=== PATIENT | male | born 1990 | race Two or more races ===

== ENCOUNTER 2018-12-04 22:15 | Day surgery (SDC) | payer SELFPAY ==
[2018-12-05] MEDS ORDERED: Ondansetron 4 MG/2 ML SDV IVPUSH ONE (00:32)
[2018-12-05] MEDS ORDERED: HYDROmorphone 1 MG/ML Syringe IVPUSH STA (00:32)
--- NOTE | 2018-12-05 00:34 | EDM.PDOC ---
ED HPI GENERAL MEDICAL PROBLEM - General Chief Complaint: Abdominal Pain Stated Complaint: LOWER ABD PAIN Time Seen by Provider: 12/05/18 00:19 Source of Information: Reports: Patient, RN Notes Reviewed, Other (Friend/ coworker) History Limitations: Reports: No Limitations - History of Present Illness INITIAL COMMENTS - FREE TEXT/NARRATIVE: The patient states that he developed right lower quadrant abdominal pain this past 12/01/2018. He describes the character as twisting and crampy. The pain originated in his periumbilical region, but migrated to the right lower quadrant yesterday. It is constant, although getting worse. It does not radiate. He has not identified any modifiers. No associated fever, nausea, vomiting, constipation, or diarrhea. No prior similar symptoms. The patient states that he has been taking omeprazole, without relief. The patient's last oral solid food was around 12 noon yesterday, , 2018. The patient does not have a PCP. Right Lower Abdomen Pain Score (Numeric/FACES): 9 - Related Data Allergies Allergy/AdvReac Type Severity Reaction Status Date / Time No Known Allergies Allergy Verified 12/04/18 22:36 Home Meds: Home Meds . [No Known Home Meds] 12/04/18 [History] Past Medical History - Past Health History Medical/Surgical History: Denies Medical/Surgical History Social & Family History - Tobacco Use Smoking Status *Q: Current Every Day Smoker Years of Tobacco use: 4 Packs/Tins Daily: 0.3 - Caffeine Use Caffeine Use: Reports: Energy Drinks, Soda - Alcohol Use Alcohol Use History: Yes Alcohol Use Frequency: Socially - Recreational Drug Use Recreational Drug Use: No - Living Situation & Occupation Living situation: Reports: , with Spouse, with Family (2 kids) Occupation: Employed (Construction) ED ROS GENERAL - Review of Systems Review Of Systems: ROS reveals no pertinent complaints other than HPI. ED EXAM, GI/ABD - Physical Exam Exam: See Below Exam Limited By: No Limitations General Appearance: Alert, WD/WN, Mild Distress (appears uncomfortable) Eyes: Bilateral: Normal Appearance, EOMI Ears: Normal External Exam, Hearing Grossly Normal Nose: Normal Inspection Throat/Mouth: Normal Inspection, Normal Lips, Normal Voice, No Airway Compromise Head: Atraumatic, Normocephalic Neck: Normal Inspection, Full Range of Motion Respiratory/Chest: No Respiratory Distress, Lungs Clear, Normal Breath Sounds, No Accessory Muscle Use Cardiovascular: Normal Peripheral Pulses, Regular Rate, Rhythm, No Gallop, No JVD, No Murmur, No Rub GI/Abdominal Exam: Soft, No Organomegaly, No Distention, No Abnormal Bruit, No Mass, Rebound (Right lower quadrant only), Tender (Exquisite, right lower quadrant only. Nontender elsewhere, however, Rovsing sign is present.), Abnormal Bowel Sounds (absent), Other (Obturator sign present. Psoas sign present. Heel drop sign positive.) (Male) Exam: Deferred Rectal (Males) Exam: Deferred Back Exam: Normal Inspection, Full Range of Motion. No: CVA Tenderness (L), CVA Tenderness (R) Extremities: Normal Inspection, Normal Range of Motion, No Pedal Edema, Normal Capillary Refill Neurological: Alert, Normal Cognition, No Motor/Sensory Deficits Psychiatric: Normal Affect Skin Exam: Warm, Dry, Intact, Normal Color, No Rash Course - Vital Signs Last Recorded V/S: Last Vital Signs Temp 36.8 C 12/04/18 22:40 Pulse 70 12/04/18 22:40 Resp 20 12/04/18 22:40 BP 130/91 H 12/04/18 22:40 Pulse Ox 98 12/04/18 22:40 - Orders/Labs/Meds Orders: Active Orders 24 hr Category Date Time Status Abdomen Pelvis w Cont [CT] Stat Exams 12/05/18 00:32 Taken UA W/MICROSCOPIC [URIN] Stat Lab 12/05/18 00:32 Ordered Sodium Chloride 0.9% [Normal Saline] 1,000 ml Med 12/05/18 00:45 Active IV ASDIRECTED metroNIDAZOLE/Normal Saline [Flagyl 500 MG in NS 100 ML Med 12/05/18 02:40 Active ] 500 mg Premix Bag 1 bag IV ONETIME Medication Orders Sodium Chloride (Normal Saline) 1,000 mls @ 150 mls/hr IV ASDIRECTED LIZA Last Admin: 12/05/18 00:40 Dose: 150 mls/hr Metronidazole 500 mg/ Premix 100 mls @ 100 mls/hr IV ONETIME ONE Stop: 12/05/18 03:39 Last Admin: 12/05/18 03:20 Dose: 100 mls/hr Labs: Laboratory Tests 12/05/18 12/05/18 Range/Units 00:35 00:35 WBC 9.93 H (4.23-9.07) K/mm3 RBC 5.86 (4.63-6.08) M/mm3 Hgb 17.0 (13.7-17.5) gm/L Hct 49.1 (40.1-51.0) % MCV 83.8 (79.0-92.2) fl MCH 29.0 (25.7-32.2) pg MCHC 34.6 (32.2-35.5) g/dl RDW Std Deviation 42.0 (35.1-43.9) fL Plt Count 327 (163-337) K/mm3 MPV 9.2 L (9.4-12.3) fl Neutrophils % (Manual) 61 H (40-60) % Band Neutrophils % 3 (0-10) % Lymphocytes % (Manual) 29 (20-40) % Atypical Lymphs % 0 % Monocytes % (Manual) 5 (2-10) % Eosinophils % (Manual) 2 (0.8-7.0) % Basophils % (Manual) 0 L (0.2-1.2) Platelet Estimate Adequate Plt Morphology Comment Normal RBC Morph Comment Normal Sodium 141 (136-145) mEq/L Potassium 4.1 (3.5-5.1) mEq/L Chloride 103 (98-107) mEq/L Carbon Dioxide 30 (21-32) mEq/L Anion Gap 12.1 (5-15) BUN 14 (7-18) mg/dL Creatinine 0.9 (0.7-1.3) mg/dL Est Cr Clr Drug Dosing 116.29 mL/min Estimated GFR (MDRD) > 60 (>60) mL/min BUN/Creatinine Ratio 15.6 (14-18) Glucose 100 (74-106) mg/dL Calcium 9.5 (8.5-10.1) mg/dL Total Bilirubin 1.3 H (0.2-1.0) mg/dL AST 22 (15-37) U/L ALT 36 (16-63) U/L Alkaline Phosphatase 138 H (46-116) U/L Total Protein 8.2 (6.4-8.2) g/dl Albumin 4.2 (3.4-5.0) g/dl Globulin 4.0 gm/dL Albumin/Globulin Ratio 1.1 (1-2) Meds: Medications Generic Name Dose Route Start Last Admin Trade Name Freq PRN Reason Stop Dose Admin Sodium Chloride 1,000 mls @ 150 mls/hr 12/05/18 00:45 12/05/18 00:40 Normal Saline IV 150 mls/hr ASDIRECTED LIZA Administration Metronidazole 500 mg/ Premix 100 mls @ 100 mls/hr 12/05/18 02:40 12/05/18 03: 20 IV 12/05/18 03:39 100 mls/hr ONETIME ONE Administration Discontinued Medications Generic Name Dose Route Start Last Admin Trade Name Freq PRN Reason Stop Dose Admin Hydromorphone HCl 1 mg 12/05/18 00:32 12/05/18 00:40 Dilaudid IVPUSH 12/05/18 00:33 1 mg ONETIME STA Administration Hydromorphone HCl 1 mg 12/05/18 03:06 12/05/18 03:11 Dilaudid IVPUSH 12/05/18 03:07 1 mg ONETIME ONE Administration Cefoxitin Sodium 2 gm/ Premix 50 mls @ 100 mls/hr 12/05/18 02:40 12/05/18 02: 47 IV 12/05/18 03:09 100 mls/hr ONETIME ONE Administration Ondansetron HCl 4 mg 12/05/18 00:32 12/05/18 00:41 Zofran IVPUSH 12/05/18 00:33 4 mg ONETIME ONE Administration - Re-Assessments/Exams Free Text/Narrative Re-Assessment/Exam: 12/05/18 00:33 Based on the patient's history and physical examination, I am concerned that the patient has a perforated appendicitis. I have ordered blood work, urinalysis , and a CT scan of the abdomen and pelvis with oral and IV contrast. In the meantime, the patient will receive IV Dilaudid, IV Zofran, and IV fluid. Other than the oral contrast, we will keep him NPO. 12/05/18 02:37 Notified by the [facility] Radiologist that the patient appears to have acute appendicitis. His appendix measures 8 mm in diameter. There is no evidence for perforation or abscess, however. 12/05/18 02:[address] Joshua Bower at 02:38. He requested that we start the patient on Mefoxin and Flagyl. He will come to the ED to evaluate the patient. 12/05/18 02:42 CT of the abdomen and pelvis with oral and IV contrast is read by Bella as: 1. Uncomplicated acute appendicitis. 2. Oral contrast is present within the distal esophagus; correlate clinically for reflux disease. 12/05/18 02:44 Test results and the plan to take the patient to the OR was discussed with the patient and his friend. The patient is agreeable. Departure - Departure Time of Disposition: 02:44 Disposition: DC/Tfer to [facility] Condition: Fair Clinical Impression: Acute appendicitis - Discharge Information *PRESCRIPTION DRUG MONITORING PROGRAM REVIEWED*: Not Applicable *COPY OF PRESCRIPTION DRUG MONITORING REPORT IN PATIENT ESTEFANIA: Not Applicable Referrals: PCP,None [Primary Care Provider] - Forms: ED Department Discharge - My Orders Last 24 Hours: My Active Orders 12/05/18 00:32 Abdomen Pelvis w Cont [CT] Stat UA W/MICROSCOPIC [URIN] Stat 12/05/18 00:45 Sodium Chloride 0.9% [Normal Saline] 1,000 ml IV ASDIRECTED 12/05/18 02:40 metroNIDAZOLE/Normal Saline [Flagyl 500 MG in NS 100 ML] 500 mg Premix Bag 1 bag IV ONETIME - Assessment/Plan Last 24 Hours: My Active Orders 12/05/18 00:32 Abdomen Pelvis w Cont [CT] Stat UA W/MICROSCOPIC [URIN] Stat 12/05/18 00:45 Sodium Chloride 0.9% [Normal Saline] 1,000 ml IV ASDIRECTED 12/05/18 02:40 metroNIDAZOLE/Normal Saline [Flagyl 500 MG in NS 100 ML] 500 mg Premix Bag 1 bag IV ONETIME
[2018-12-05] MEDS ORDERED: Sodium Chloride 0.9% 1,000 ML IV SCH (00:45)
[2018-12-05] MEDS ORDERED: metroNIDAZOLE/Normal Saline 500 MG in Premix Bag 1 BAG IV ONE (02:40)
[2018-12-05] MEDS ORDERED: cefOXitin 2 GM in Premix Bag 1 BAG IV ONE (02:40)
[2018-12-05] MEDS ORDERED: HYDROmorphone 1 MG/ML Syringe IVPUSH ONE (03:06)
--- NOTE | 2018-12-05 04:01 | PCM.SURGPN ---
- General Info Date of Service: 12/05/18 - Patient Data Vitals - Most Recent: Last Vital Signs Temp 98.3 F 12/04/18 22:40 Pulse 70 12/04/18 22:40 Resp 20 12/04/18 22:40 BP 130/91 H 12/04/18 22:40 Pulse Ox 98 12/04/18 22:40 Weight - Most Recent: 89 kg Lab Results Last 24 Hrs: Laboratory Results - last 24 hr 12/05/18 12/05/18 Range/Units 00:35 00:35 WBC 9.93 H (4.23-9.07) K/mm3 RBC 5.86 (4.63-6.08) M/mm3 Hgb 17.0 (13.7-17.5) gm/L Hct 49.1 (40.1-51.0) % MCV 83.8 (79.0-92.2) fl MCH 29.0 (25.7-32.2) pg MCHC 34.6 (32.2-35.5) g/dl RDW Std Deviation 42.0 (35.1-43.9) fL Plt Count 327 (163-337) K/mm3 MPV 9.2 L (9.4-12.3) fl Neutrophils % (Manual) 61 H (40-60) % Band Neutrophils % 3 (0-10) % Lymphocytes % (Manual) 29 (20-40) % Atypical Lymphs % 0 % Monocytes % (Manual) 5 (2-10) % Eosinophils % (Manual) 2 (0.8-7.0) % Basophils % (Manual) 0 L (0.2-1.2) Platelet Estimate Adequate Plt Morphology Comment Normal RBC Morph Comment Normal Sodium 141 (136-145) mEq/L Potassium 4.1 (3.5-5.1) mEq/L Chloride 103 (98-107) mEq/L Carbon Dioxide 30 (21-32) mEq/L Anion Gap 12.1 (5-15) BUN 14 (7-18) mg/dL Creatinine 0.9 (0.7-1.3) mg/dL Est Cr Clr Drug Dosing 116.29 mL/min Estimated GFR (MDRD) > 60 (>60) mL/min BUN/Creatinine Ratio 15.6 (14-18) Glucose 100 (74-106) mg/dL Calcium 9.5 (8.5-10.1) mg/dL Total Bilirubin 1.3 H (0.2-1.0) mg/dL AST 22 (15-37) U/L ALT 36 (16-63) U/L Alkaline Phosphatase 138 H (46-116) U/L Total Protein 8.2 (6.4-8.2) g/dl Albumin 4.2 (3.4-5.0) g/dl Globulin 4.0 gm/dL Albumin/Globulin Ratio 1.1 (1-2) Med Orders - Current: Current Medications Sodium Chloride (Normal Saline) 1,000 mls @ 150 mls/hr IV ASDIRECTED [facility] Last Admin: 12/05/18 00:40 Dose: 150 mls/hr Discontinued Medications Hydromorphone HCl (Dilaudid) 1 mg IVPUSH ONETIME STA Stop: 12/05/18 00:33 Last Admin: 12/05/18 00:40 Dose: 1 mg Hydromorphone HCl (Dilaudid) 1 mg IVPUSH ONETIME ONE Stop: 12/05/18 03:07 Last Admin: 12/05/18 03:11 Dose: 1 mg Cefoxitin Sodium 2 gm/ Premix 50 mls @ 100 mls/hr IV ONETIME ONE Stop: 12/05/18 03:09 Last Admin: 12/05/18 02:47 Dose: 100 mls/hr Metronidazole 500 mg/ Premix 100 mls @ 100 mls/hr IV ONETIME ONE Stop: 12/05/18 03:39 Last Admin: 12/05/18 03:20 Dose: 100 mls/hr Ondansetron HCl (Zofran) 4 mg IVPUSH ONETIME ONE Stop: 12/05/18 00:33 Last Admin: 12/05/18 00:41 Dose: 4 mg - Problem List Review Problem List Initiated/Reviewed/Updated: Yes - My Orders Last 24 Hours: Active Orders 24 hr Category Date Time Status Abdomen Pelvis w Cont [CT] Stat Exams 12/05/18 00:32 Taken UA W/MICROSCOPIC [URIN] Stat Lab 12/05/18 00:32 Ordered Sodium Chloride 0.9% [Normal Saline] 1,000 ml Med 12/05/18 00:45 Active IV ASDIRECTED Schedule Procedure [COMM] Stat Oth 12/05/18 03:56 Ordered Medication Orders Sodium Chloride (Normal Saline) 1,000 mls @ 150 mls/hr IV ASDIRECTED LIZA Last Admin: 12/05/18 00:40 Dose: 150 mls/hr - Plan Plan (Free Text/Narrative):: H&P dictated JMB
--- NOTE | 2018-12-05 04:14 | PCM.PREANE ---
Preanesthetic Assessment - Procedure Proposed Procedure: lap appy - Anesthesia/Transfusion/Family Hx Anesthesia History: Prior Anesthesia Without Reaction Family History of Anesthesia Reaction: No Transfusion History: No Prior Transfusion(s) - Review of Systems General: No Symptoms Pulmonary: No Symptoms Cardiovascular: No Symptoms Gastrointestinal: Abdominal Pain (Saturday) Neurological: No Symptoms Other: Reports: None - Physical Assessment NPO Status Date: 12/04/18 NPO Status Time: 12:00 O2 Sat by Pulse Oximetry: 98 Respiratory Rate: 20 Vital Signs: Last Vital Signs Temp 98.3 F 12/04/18 22:40 Pulse 70 12/04/18 22:40 Resp 20 12/04/18 22:40 BP 130/91 H 12/04/18 22:40 Pulse Ox 98 12/04/18 22:40 Height: 5 ft 7 in Weight: 89 kg ASA Class: 2E Mental Status: Alert & Oriented x3 Airway Class: Mallampati = 1 Dentition: Reports: Normal Dentition Thyro-Mental Finger Breadths: 3 Mouth Opening Finger Breadths: 3 ROM/Head Extension: Full Lungs: Clear to Auscultation, Normal Respiratory Effort Cardiovascular: Regular Rate, Regular Rhythm - Lab Values: Laboratory Last Values WBC 9.93 K/mm3 (4.23-9.07) H 12/05/18 00:35 RBC 5.86 M/mm3 (4.63-6.08) 12/05/18 00:35 Hgb 17.0 gm/L (13.7-17.5) 12/05/18 00:35 Hct 49.1 % (40.1-51.0) 12/05/18 00:35 MCV 83.8 fl (79.0-92.2) 12/05/18 00:35 MCH 29.0 pg (25.7-32.2) 12/05/18 00:35 MCHC 34.6 g/dl (32.2-35.5) 12/05/18 00:35 RDW Std Deviation 42.0 fL (35.1-43.9) 12/05/18 00:35 Plt Count 327 K/mm3 (163-337) 12/05/18 00:35 MPV 9.2 fl (9.4-12.3) L 12/05/18 00:35 Neutrophils % (Manual) 61 % (40-60) H 12/05/18 00:35 Band Neutrophils % 3 % (0-10) 12/05/18 00:35 Lymphocytes % (Manual) 29 % (20-40) 12/05/18 00:35 Atypical Lymphs % 0 % 12/05/18 00:35 Monocytes % (Manual) 5 % (2-10) 12/05/18 00:35 Eosinophils % (Manual) 2 % (0.8-7.0) 12/05/18 00:35 Basophils % (Manual) 0 (0.2-1.2) L 12/05/18 00:35 Platelet Estimate Adequate 12/05/18 00:35 Plt Morphology Comment Normal 12/05/18 00:35 RBC Morph Comment Normal 12/05/18 00:35 Sodium 141 mEq/L (136-145) 12/05/18 00:35 Potassium 4.1 mEq/L (3.5-5.1) 12/05/18 00:35 Chloride 103 mEq/L (98-107) 12/05/18 00:35 Carbon Dioxide 30 mEq/L (21-32) 12/05/18 00:35 Anion Gap 12.1 (5-15) 12/05/18 00:35 BUN 14 mg/dL (7-18) 12/05/18 00:35 Creatinine 0.9 mg/dL (0.7-1.3) 12/05/18 00:35 Est Cr Clr Drug Dosing 116.29 mL/min 12/05/18 00:35 Estimated GFR (MDRD) > 60 mL/min (>60) 12/05/18 00:35 BUN/Creatinine Ratio 15.6 (14-18) 12/05/18 00:35 Glucose 100 mg/dL (74-106) 12/05/18 00:35 Calcium 9.5 mg/dL (8.5-10.1) 12/05/18 00:35 Total Bilirubin 1.3 mg/dL (0.2-1.0) H 12/05/18 00:35 AST 22 U/L (15-37) 12/05/18 00:35 ALT 36 U/L (16-63) 12/05/18 00:35 Alkaline Phosphatase 138 U/L (46-116) H 12/05/18 00:35 Total Protein 8.2 g/dl (6.4-8.2) 12/05/18 00:35 Albumin 4.2 g/dl (3.4-5.0) 12/05/18 00:35 Globulin 4.0 gm/dL 12/05/18 00:35 Albumin/Globulin Ratio 1.1 (1-2) 12/05/18 00:35 - Allergies Allergies/Adverse Reactions: Allergies Allergy/AdvReac Type Severity Reaction Status Date / Time No Known Allergies Allergy Verified 12/04/18 22:36 - Blood Blood Available: No - Acknowledgements Anesthesia Type Planned: General Anesthesia Pt an Appropriate Candidate for the Planned Anesthesia: Yes Alternatives and Risks of Anesthesia Discussed w Pt/Guardian: Yes Pt/Guardian Understands and Agrees with Anesthesia Plan: Yes PreAnesthesia Questionnaire - Past Health History Medical/Surgical History: Denies Medical/Surgical History Cardiovascular History: Reports: None Respiratory History: Reports: None Gastrointestinal History: Reports: GERD - Past Surgical History HEENT Surgical History: Reports: Oral Surgery - History Comment History Comment: omeprazole q day - SUBSTANCE USE Smoking Status *Q: Current Every Day Smoker Tobacco Use Within Last Twelve Months: Cigarettes Second Hand Smoke Exposure: Yes Days Per Week of Alcohol Use: 1 Recreational Drug Use History: No - HOME MEDS Home Medications: Home Meds . [No Known Home Meds] 12/04/18 [History] - CURRENT (IN HOUSE) MEDS Current Meds: Current Medications Sodium Chloride (Normal Saline) 1,000 mls @ 150 mls/hr IV ASDIRECTED [facility] Last Admin: 12/05/18 00:40 Dose: 150 mls/hr Discontinued Medications Hydromorphone HCl (Dilaudid) 1 mg IVPUSH ONETIME STA Stop: 12/05/18 00:33 Last Admin: 12/05/18 00:40 Dose: 1 mg Hydromorphone HCl (Dilaudid) 1 mg IVPUSH ONETIME ONE Stop: 12/05/18 03:07 Last Admin: 12/05/18 03:11 Dose: 1 mg Cefoxitin Sodium 2 gm/ Premix 50 mls @ 100 mls/hr IV ONETIME ONE Stop: 12/05/18 03:09 Last Admin: 12/05/18 02:47 Dose: 100 mls/hr Metronidazole 500 mg/ Premix 100 mls @ 100 mls/hr IV ONETIME ONE Stop: 12/05/18 03:39 Last Admin: 12/05/18 03:20 Dose: 100 mls/hr Ondansetron HCl (Zofran) 4 mg IVPUSH ONETIME ONE Stop: 12/05/18 00:33 Last Admin: 12/05/18 00:41 Dose: 4 mg
[2018-12-05] MEDS ORDERED: Rocuronium 50 MG/5 ML Vial ONE (04:22)
[2018-12-05] MEDS ORDERED: Lidocaine 1% 4 ML ONE (04:22)
[2018-12-05] MEDS ORDERED: Propofol 200 MG/20 ML SDV ONE (04:22)
[2018-12-05] MEDS ORDERED: fentaNYL 250 MCG/5 ML SDV ONE (04:22)
[2018-12-05] MEDS ORDERED: Ondansetron 4 MG/2 ML SDV ONE (04:22)
[2018-12-05] MEDS ORDERED: Midazolam 1 MG/ML 2 ML SDV ONE (04:22)
[2018-12-05] MEDS ORDERED: Bupivacaine 0.5% 30 ML SDV ONE (04:23)
[2018-12-05] MEDS ORDERED: Succinylcholine/Normal Saline 100 MG/5 ML Syringe ONE (04:23)
[2018-12-05] MEDS ORDERED: fentaNYL 100 MCG/2 ML SDV IVPUSH PRN (04:58)
[2018-12-05] MEDS ORDERED: Ondansetron 4 MG/2 ML SDV IVPUSH PRN (04:58)
[2018-12-05] MEDS ORDERED: HYDROmorphone 0.5 MG/0.5 ML Syringe IVPUSH PRN (04:58)
[2018-12-05] MEDS ORDERED: Meperidine 50 MG/ML Vial IVPUSH PRN (04:58)
[2018-12-05] MEDS ORDERED: Neostigmine Methylsulfate 1 MG/ML 5 ML Syringe ONE (05:17)
[2018-12-05] MEDS ORDERED: fentaNYL 100 MCG/2 ML SDV ONE (05:21)
[2018-12-05] MEDS ORDERED: Ketorolac 30 MG/ML SDV ONE (05:27)
--- NOTE | 2018-12-05 06:02 | PCM.OPNOTE ---
- General Post-Op/Procedure Note Date of Surgery/Procedure: 12/05/18 Operative Procedure(s): lap appy Pre Op Diagnosis: acute appendicitis Post-Op Diagnosis: Same Anesthesia Technique: General ET Tube Primary Surgeon: Joshua Bower EBL in mLs: 10 Complications: None Condition: Good
--- NOTE | 2018-12-05 06:07 | PCM.POSTAN ---
POST ANESTHESIA ASSESSMENT - MENTAL STATUS Mental Status: Somnolent - VITAL SIGNS Pulse Rate: 85 SaO2: 95 Resp Rate: 12 Blood Pressure: 135/87 Temperature: 101.2 F - RESPIRATORY Respiratory Status: Respiratory Rate WNL, Airway Patent, O2 Saturation Stable, Supplemental Oxygen - CARDIOVASCULAR CV Status: Pulse Rate WNL, Blood Pressure Stable - GASTROINTESTINAL GI Status: No Symptoms - PAIN Pain Score: 0 (rests- occ clears throat) - POST OP HYDRATION Hydration Status: Adequate & Stable
--- NOTE | 2018-12-05 07:24 | CT ---
CT abdomen and pelvis Technique: Multiple axial sections were obtained from above the dome of the diaphragm inferiorly through the pubic symphysis. Intravenous and oral contrast was utilized. Delayed images were obtained through the pelvis. Comparison: No previous study is available. Findings: Appendix is thickened and also hyperemic. Inflammatory change is noted around the appendix. There is bowel wall thickening within the terminal ileum which may relate to change from the appendicitis. Visualized lung bases show nothing acute. Liver contains no focal abnormality. Spleen appears within normal limits. Small amount of contrast noted within the esophagus compatible with reflux. Adrenal glands show no nodule. Pancreas is normal. Gallbladder contains no calcified gallstones. Kidneys show symmetric contrast enhancement without hydronephrosis or mass. Aorta shows no aneurysm. No retroperitoneal adenopathy is seen. No mesenteric abnormalities are seen. Small amount of free fluid seen within the pelvis. Delayed images show contrast within the distal ureters and within the bladder. Impression: 1. Enlarged and hyperemic appendix with surrounding inflammatory change compatible with appendicitis. 2. Bowel wall thickening seen within the adjacent terminal ileum loops likely relating to change from the inflammation caused by the appendicitis. Difficult to exclude Crohn's disease at this point. 3. Contrast within the esophagus compatible with gastroesophageal reflux. Diagnostic code #5 I agree with preliminary report from [facility], (additional finding and discussion as noted above) finalized on 12/05/18, 3:39 AM Central Time, code 2
[2018-12-05] MEDS ORDERED: Acetaminophen/HYDROcodone 325-5 MG Tab PO PRN (08:37)
--- NOTE | 2018-12-08 07:24 | HP ---
DATE OF ADMISSION: 12/05/2018 HISTORY OF PRESENT ILLNESS: This is a 28-year-old male who has been having pain since Saturday. He has twisting and cramping pain originated in the periumbilical region and migrated to the right lower quadrant yesterday. It is constant, steady, getting worse, and although there is no association with nausea, vomiting, constipation, or diarrhea, he has had no prior symptoms. CT scan was done showing acute appendicitis. The patient has been taking omeprazole without help. He has had a poor appetite and has not eaten since noon. Currently, he is an everyday smoker and no use of recreational drugs. REVIEW OF SYSTEMS: No chest pain, shortness of breath, cough, hoarseness, wheezing, fainting, weakness, numbness, or convulsions. He has abdominal pain. FAMILY HISTORY: Negative. PHYSICAL EXAMINATION: GENERAL: Reveals alert and cooperative male. VITAL SIGNS: Temperature is 36, pulse 70, respirations 20, and blood pressure 130/91. EYES: Sclerae white. ORAL CAVITY: Healthy mucous membrane. NECK: Supple. No nodes. No thyromegaly. Trachea midline. LUNGS: Clear. No rales, rhonchi, fremitus, or dullness. CARDIAC: Heart tones are regular rate. No S3, S4, jugular venous distention, or murmurs. ABDOMEN: Shows tenderness in the right lower quadrant with guarding. EXTREMITIES: Upper and lower extremities, no angulation or deformities. NEUROLOGIC: No sensorineural deficit. PSYCHIATRIC: Normal. SKIN: Warm and dry. ASSESSMENT: Acute appendicitis. PLAN: For laparoscopic appendectomy. Discussed the procedure with the patient, risks and complications, understands, and consents. MMODAL /[id number]
--- NOTE | 2018-12-08 08:06 | OR ---
DATE OF OPERATION: 12/05/2018 SURGEON: Joshua Bower MD PREOPERATIVE DIAGNOSIS: Acute appendicitis. POSTOPERATIVE DIAGNOSIS: Acute appendicitis. OPERATION PERFORMED: Laparoscopic appendectomy. FINDINGS: Acutely inflamed appendix adherent to the anterior abdominal wall with a lot a reaction of small bowel for about 2 feet. Reaction included erythema and redness of the small bowel. There was some exudate around the appendix where the small bowel was attached up near the anterior abdominal wall. ANESTHESIA: Procedure done under general anesthetic. ESTIMATED BLOOD LOSS: About 10 mL. DESCRIPTION OF PROCEDURE: The patient taken to the operating room, placed in a supine position, connected to monitoring equipment, given a general anesthetic and intubated, and antibiotics and SCDs had been placed and the abdomen was then clipped and prepped with chlorhexidine and alcohol, prepped and draped off in a sterile fashion. 1% Xylocaine with Marcaine was infiltrated around the umbilicus, and a curvilinear incision was made just below the umbilicus and carried down by sharp dissection to the fascia, which was incised, tented up with a Vasu, and the abdominal cavity entered. Paddy trocar placed and secured with stay sutures. Pneumoperitoneum established, and this was followed by 5 mm 30-degree camera. The abdominal cavity scan showing the appendix and a small loop of ileum attached to the appendix which was adherent to the anterior abdominal wall. There was a lot a reaction that was erythema of small bowel for about 2 feet around this general area. I did not see any sign of perforation. A 5 mm trocar placed in right upper quadrant and one in right lower quadrant, and the adhesions were taken down bluntly, and a window was placed in the mesoappendix, and the mesoappendix was released laterally. Endo-ligator was then used to separate the appendix from its attachments to the cecum. Another firing of the Endo-ligator the mesoappendix and the appendix, and the appendix was then placed in an Endobag and removed from the abdominal cavity. The area was then checked and irrigated both the pelvis and the right upper quadrant around the area, and then the small bowel was run for about 2 feet which excluded any perforation or any of the small bowel or any Meckel. This completed the intraabdominal portion. Excellent hemostasis was noted. Paddy trocar was removed, and the fascia of the subumbilical port closed with a running 0 Vicryl suture. The area of the skin of each incision was closed with subdermal 4-0 Dexon suture, and Steri-Strips and sterile dressing placed, and 0.5% Marcaine with Xylocaine infiltrated in the ports in right upper and right lower quadrant. This completed the procedure. It was to be noted that not only was the small bowel checked, the pelvis checked, and the colon checked and the only inflammatory process was the appendix. The patient tolerated the procedure, sent to recovery room in a stable condition. MMODAL /[id number]
== END 2018-12-05 12:42 | disposition home or self-care (01) ==
LOC: JD.ED 22:15 → JD.SDS 12-05 03:57
PROVIDERS: ATTEND Surgery
DX: K35.32 Acute appendicitis with perforation, localized peritonitis, and gangrene, without abscess (principal); F17.210 Nicotine dependence, cigarettes, uncomplicated
CPT/HCPCS: 36415; 44970; 74177; 80053; 85007; 85027; 96361; 96365; 96367; 96375; 96376; 99285; A9270; J0330; J0694; J1170; J1885; J2001; J2250; J2405; J2704; J2710; J3010; J3490; J7040; 00840